=== PATIENT | male | born 1990 | race Caucasian/White ===

== ENCOUNTER 2019-04-18 12:20 | Emergency (ER) | payer MEDICAID ==
[~2019-04-18] VITALS: Ht 170.2 cm; Wt 88.3 kg
[~2019-04-18 12:20] MED LIST: INSU100V36 SQ; LANTUS SQ
[2019-04-18 12:30] VITALS: BP 106/73
[2019-04-18] MEDS ORDERED: aspirin 325mg tablet PO ONE (13:05)
== END 2019-04-18 13:25 | disposition home or self-care (01) ==
LOC: ER 12:20
DX: I80.8 Phlebitis and thrombophlebitis of other sites (principal); F12.90 Cannabis use, unspecified, uncomplicated; E11.9 Type 2 diabetes mellitus without complications; Z88.2 Allergy status to sulfonamides; Z88.5 Allergy status to narcotic agent; Z79.4 Long term (current) use of insulin
CPT/HCPCS: 73090; 82948; 99283